=== PATIENT | female | born 1975 | race Caucasian/White ===

== ENCOUNTER 2016-11-02 08:16 | Outpatient (CLI) | payer OTHER ==
--- NOTE | 2016-11-02 08:57 | MMO ---
BILATERAL SCREENING MAMMOGRAM: HISTORY: A 41-year-old female for screening mammography. COMPARISON: None. FINDINGS: Bilateral MLO and CC views of the breasts show scattered fibroglandular breast tissue. There is no evidence of suspicious mass, suspicious clustered microcalcifications, or area of architectural dist ortion. Interpretation of this mammogram was performed with the assistance of computer-aided detection. IMPRESSION: BI-RADS category 1 - negative. Annual screening mammography is recommended. POS: [facility]
== END 2016-11-02 08:17 | disposition home or self-care (01) ==
LOC: SCSMAMMO 08:16
PROVIDERS: ATTEND Family Medicine
DX: Z12.31 Encounter for screening mammogram for malignant neoplasm of breast (principal)
CPT/HCPCS: 77067; G0202

== ENCOUNTER 2017-11-13 14:03 | Outpatient (CLI) | payer OTHER ==
--- NOTE | 2017-11-13 15:53 | MMO ---
BILATERAL SCREENING MAMMOGRAMS: Date: 11/13/17 Comparison made to prior exam from 2017. This patient's mammogram was interpreted with the assistance of computer-aided detection. FINDINGS: Heterogeneously dense glandular pattern is noted. There is a new nodular density measuring approximately 8.0 mm in the upper outer left breast. Recomme nd further evaluation with diagnostic left breast exam. IMPRESSION: BIRADS 0: Incomplete: Need Additional Imaging Evaluation and/or Prior Mammograms for Comparison Further imaging of the left breast required. The facility will notify patient of need for additional imaging services. POS: [facility]
== END 2017-11-13 14:04 | disposition home or self-care (01) ==
LOC: SCSMAMMO 14:03
PROVIDERS: ATTEND Family Medicine
DX: Z12.31 Encounter for screening mammogram for malignant neoplasm of breast (principal)
CPT/HCPCS: 77067

== ENCOUNTER 2017-11-14 14:24 | Outpatient (CLI) | payer OTHER ==
--- NOTE | 2017-11-14 15:51 | ULT ---
LEFT BREAST ULTRASOUND: Comparison: Mammograms 11-14-17, 11-13-17, 10-25-16 History: Focal asymmetry in the upper outer aspect of the left breast seen on screening mammography. Technique: Multiplanar grayscale and color doppler images were obtained in a targeted ultrasound of t he upper outer aspect of the left breast. FINDINGS: There appears to be a cluster of small cysts measuring 0.9 cm in greatest dimension at the 2 o'clock position of the left breast. This corresponds to mammographic abnormality and most likely represent a pical metaplasia. There is a hyperechoic line to this apparent cluster of cysts which could represent a hilum and alternatively this could represent a small intramammary lymph node. No suspicious shadow ing or suspicious mass is identified. IMPRESSION: BIRADS category 2 - benign findings. Annual screening mammography is recommended. POS: [facility]
== END 2017-11-14 14:25 | disposition home or self-care (01) ==
LOC: BICMAMMO 14:24
PROVIDERS: ATTEND Family Medicine
DX: R92.2 Inconclusive mammogram (principal); R92.8 Other abnormal and inconclusive findings on diagnostic imaging of breast; N63.20 Unspecified lump in the left breast, unspecified quadrant; Z80.3 Family history of malignant neoplasm of breast
CPT/HCPCS: G0279